=== PATIENT | male | born 1950 | race Caucasian/White ===

== ENCOUNTER 2020-02-05 08:49 | Emergency (ER) | payer MEDICARE ==
--- NOTE | 2020-02-05 09:26 | ED ---
Altered Mental Status - HPI Summary HPI Summary: [facility] 69[facility] presenting to the ED with . Per in triage, patient has been hallucinating for 3 weeks stating he has been seeing objects she is not seeing. Patient states similar occurrence of "short term memory loss" [address] 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 He also developed a slight foot drop. States his sxs improved, but per his "his brain was never the same." He has never had a CT or MRI of the brain. No hx of strokes, migraines, seizures. Denies hx of hallucinations. No hx of mental health. He states he sees things his is not seeing honey everyday. States there is construction outside his house and the people appear to be umm. He states every now and then they will get in small fighter jets, (adds: "I know this sounds crazy"), and will fly off. Sometimes they are not there, but usually they are. He denies seeing other things his isn't seeing and is only associating the issue with the constructions workers. Denies cough, congestion, HICKEY, head pain, fevers, sweats, chills, abd pain, urinary symptoms. Denies confusion, numbness or tingling, weakness, visual changes. Medications include: baby aspirin, metoprolol tartrate, vitamin D. - History Of Current Complaint Chief Complaint: EDAltMentalStatus Stated Complaint: HALLUCINATIONS PER Time Seen by Provider: 02/05/20 09:03 Hx Obtained From: Patient Timing: Constant - Allergies/Home Medications Allergies/Adverse Reactions: Allergies Allergy/AdvReac Type Severity Reaction Status Date / Time No Known Allergies Allergy Verified 02/05/20 08:56 Home Medications: Home Medications Metoprolol Tartrate TAB* [Lopressor TAB*] 50 mg PO BID 09/18/14 [History Confirmed 02/05/20] Amlodipine Besylate [Norvasc-] 5 mg PO DAILY 04/22/15 [History Confirmed ] Aspirin EC TAB* [Ecotrin EC Low Dose 81 MG*] 81 mg PO DAILY 02/05/20 [History Confirmed 02/05/20] Cholecalciferol TAB* [Vitamin D TAB*] 100 unit PO DAILY 02/05/20 [History Confirmed 02/05/20] Docusate Sodium [Stool Softener] 50 mg PO QID 02/05/20 [History Confirmed ] Ipratropium/Albuterol Sulfate [Iprat-Albut 0.5-3(2.5) mg/3 ml] 3 ml INH BID [History Confirmed 02/05/20] Omeprazole CAP (NF) [Prilosec CAP* 20 MG] 20 mg PO DAILY 02/05/20 [History Confirmed 02/05/20] Theophylline TAB* [Rico Dur*] 100 mg PO DAILY 02/05/20 [History Confirmed ] Tiotropium [place] [Spiriva Respimat] 4 gm INH DAILY 02/05/20 [History Confirmed 02/05/20] PMH/Surg Hx/FS Hx/Imm Hx Previously Healthy: Yes Endocrine/Hematology History: Reports: Other Endocrine/Hematological Disorders - 06/10/15 Now checking blood sugar per MD instruction Cardiovascular History: Reports: Hx Hypertension, Other Cardiovascular Problems/ Disorders - Bradycardia Respiratory History: Reports: Hx Asthma - 06/10: has started albuterol MDI as needed, Hx Chronic Obstructive Pulmonary Disease (COPD) Musculoskeletal History: Reports: Hx Back Problems Sensory History: Reports: Hx Contacts or Glasses Opthamlomology History: Reports: Hx Contacts or Glasses Neurological History: Denies: Other Neuro Impairments/Disorders - PAIN CLINIC PT - Surgical History Surgery Procedure, Year, and Place: Tonsillectomy - Immunization History Hx Pertussis Vaccination: No Immunizations Up to Date: Yes Infectious Disease History: No Infectious Disease History: Denies: Traveled Outside the [place] in Last 30 Days - Social History Occupation: Unemployed Lives: With Family Alcohol Use: Daily Alcohol Amount: 2 drinks daily Hx Substance Use: No Substance Use Type: Reports: None Smoking Status (MU): Former Smoker Type: Cigarettes Have You Smoked in the Last Year: No Review of Systems Negative: Fever, Chills, Fatigue, Skin Diaphoresis Negative: Palpitations, Chest Pain Negative: Shortness Of Breath, Cough Genitourinary: Negative Positive: no symptoms reported, see HPI Negative: Arthralgia, Myalgia Neurological/Mental Status: Other - hallucinations at home x 3 weeks, none currently All Other Systems Reviewed And Are Negative: Yes Physical Exam - Summary Physical Exam Summary: Appearance: WDW, comfortable, pleasant, alert Skin: Soft dry skin, no lesions. Nailbeds pink with no cyanosis or clubbing. No petechia noted. Eyes: ROGERIO, EOMI, Conjunctiva pink with no redness or exudates. Mouth: Dentition without lesions. Moist mucosa Neck: Full range of motion. Palpable thyroid. Trachea at midline. No lymphadenopathy. Pulm: Chest symmetrical expansion. No deformities on posterior chest wall. Lungs clear to auscultation and percussion, without adventitious sounds. CV: No JVD. No deformities on anterior chest wall. Heart sounds. RRR. Normal S1 and single S2. No S3, S4, rubs, or murmurs. Carotids 2+ bilaterally without bruits. . exam not performed GI: Bowel sounds WNL in all 4 quadrants. No pain on deep palpation of all 4 quadrants. Negative brothers's, negative obturator. Psoas not performed. No pain over Mcburney's point. Musculoskeletal: Flexion and extension of neck without limitations. ROM WNL in all extremities. No deformities noted. Pulses +2 bilaterally. Neuro: Motor strength is 5/5 in upper and lower extremities bilaterally. A& OX3. NIH = 0. Psych: Logical, coherent Triage Information Reviewed: Yes Vital Signs On Initial Exam: Initial Vitals Temp Pulse Resp BP Pulse Ox 97.1 F 76 19 142/97 97 02/05/20 08:50 02/05/20 08:50 02/05/20 08:50 02/05/20 08:50 02/05/20 08:50 Vital Signs Reviewed: Yes Appearance: Positive: Well-Appearing, Well-Nourished Skin: Positive: Warm, Skin Color Reflects Adequate Perfusion Head/Face: Positive: Normal Head/Face Inspection Eyes: Positive: EOMI, ROGERIO, Conjunctiva Clear Neck: Positive: Supple, No Lymphadenopathy Respiratory/Lung Sounds: Positive: Clear to Auscultation, Breath Sounds Present Musculoskeletal: Positive: Normal, Strength/ROM Intact Neurological: Positive: Sensory/Motor Intact, Alert, Oriented to Person Place, Time, CN Intact II-III, Normal Gait, Speech Normal. Negative: Disoriented, Facial Droop, Slurred Speech, Ataxic Gait Psychiatric: Positive: Normal, Affect/Mood Appropriate AVPU Assessment: Alert Procedures - Sedation Patient Received Moderate/Deep Sedation with Procedure: No Diagnostics - Vital Signs Vital Signs Temp Pulse Resp BP Pulse Ox 02/05/20 08:50 97.1 F 76 19 142/97 97 - Laboratory Result Diagrams: 02/05/20 09:25 02/05/20 09:25 Lab Statement: Any lab studies that have been ordered have been reviewed, and results considered in the medical decision making process. Altered Mental Statu Course/Dx - Course Course Of Treatment: On arrival into the ED, the patient appears well. Denies any symptoms. States he does not feel confused, and states he does not feel he is hallucination. Neuro exam normal with a NIH of 0. Neuro exam all WNL. Patient answering all questions appropriately. A and O x 3. Complex visual hallucinations present. No evidence of acute or chronic vision loss. Duration of episodes varies throughout the day. Denies any hallucinations for a few seconds to minutes to suggest seizure. No hx of alcohol or drug WD or psych disease. Pt does not appear delirious. No hx of auras or migraines. Alcohol and Tylenol negative. Pt unable to give urine sample while in ED but adamant about no drug use. No UA sxs. Review of medication list reveals no cross reactions. No new meds added per patient. No auditory hallucinations. Labs: Brain CT obtained: No evidence of acute intracranial abnormalities. These hallucinations may be temporary. Also may be a sign of early dementia. No emergent intervention required at this time, however discussed with the patient prefer to have PCP follow up within the week at the [place] and further evaluation as needed. - Diagnoses Differential Diagnosis/HQI/PQRI: Metabolic Disorder, Seizure, TIA Provider Diagnoses: Hallucination Discharge ED - Sign-Out/Discharge Documenting (check all that apply): Patient Departure - Discharge Plan Condition: Stable Disposition: HOME Patient Education Materials: Nonpsychiatric Hallucinations (ED) Referrals: Carin Dubon [Primary Care Provider] - Additional Instructions: Please see your PCP within the next few weeks for a recheck Todays visit, your CT scan was normal. All of your bloodwork was normal. Your neuro exam was also normal. - Billing Disposition and Condition Condition: STABLE Disposition: Home - Attestation Statements Provider Attestation: I was available for consult. This patient was seen by the REJI. The patient was not presented to, seen by, or examined by me. Ebenezer Lea MD
[2020-02-05 09:46] LABS: ABS Basophils 0.1 10^3/ul (0-0.2); ABS Eosinophils 0.1 10^3/ul (0-0.6); ABS Lymphocytes 1.4 10^3/ul (1.0-4.8); ABS Monocytes 1.3 10^3/ul (0-0.8); ABS Neutrophils 6.6 10^3/ul (1.5-7.7); Eosinophil % 1.5 %; Hematocrit 46 % (42-52); Mean Corpuscular HGB Conc 34 g/dL (31-36); Mean Corpuscular Hemoglobin 32 pg (27-31); Mean Corpuscular Volume 92 fL (80-94); Mean Platelet Volume 8.6 fL (7.4-10.4); Platelet Count 262 10^3/uL (150-450); Red Blood Count 5.03 10^6 /uL (4.18-5.48); Red Cell Distribution Width 13 % (10-15); White Blood Count 9.5 10^3/uL (3.5-10.8)
[2020-02-05 10:00] LABS: ALT 15 U/L (7-52); AST 17 U/L (13-39); Albumin 4.4 g/dL (3.2-5.2); Albumin/Globulin Ratio 1.8 (1-3); Alkaline Phosphatase 77 U/L (34-104); Anion Gap 7 mmol/L (2-11); BUN/Creatinine Ratio 15.3 (8-20); Blood Urea Nitrogen 19 mg/dL (6-24); CO2 Carbon Dioxide 24 mmol/L (22-32); Calcium 9.8 mg/dL (8.6-10.3); Chloride 103 mmol/L (101-111); EGFR African American 69.7 (>60); EGFR Non-African American 57.6 (>60); Globulin 2.4 g/dL (2-4); Glucose 116 mg/dL (70-100); Magnesium 1.9 mg/dL (1.9-2.7); Potassium 3.9 mmol/L (3.5-5.0); Sodium 134 mmol/L (135-145); Total Protein 6.8 g/dL (6.4-8.9)
[2020-02-05 10:31] VITALS: BP 167/95
[2020-02-05 10:36] LABS: Acetaminophen < 15 mcg/mL; Alcohol < 10 mg/dL (<10)
== END 2020-02-05 10:37 | disposition home or self-care (01) ==
LOC: ED 08:49
DX: R44.1 Visual hallucinations (principal); I10 Essential (primary) hypertension; J44.9 Chronic obstructive pulmonary disease, unspecified; Z87.891 Personal history of nicotine dependence; Z79.82 Long term (current) use of aspirin; Z79.899 Other long term (current) drug therapy
CPT/HCPCS: 36415; 70450; 80053; 80320; 80329; 82140; 83735; 84484; 85025; 93005; 99282; G0480